=== PATIENT | male | born 1995 | race Asian ===

== ENCOUNTER 2021-11-02 14:28 | Emergency (ER) | payer OTHER, SELFPAY ==
[2021-11-02 14:55] VITALS: BP 121/70; PULSE 74; RESP 18; TEMP 36.7; O2SAT 99; BMI 28.3
[2021-11-02] MEDS: KETOROLAC 30 MG/ML VIAL 15 MG IM (15:41)
--- NOTE | 2021-11-02 15:47 | ED_ITS ---
HPI - Pediatric HENT <BHAVESH Quiroz - Last Filed: 11/02/21 15:53> General Chief complaint: Dental/Oral Stated complaint: right side jaw pain 1 day Time Seen by Provider: 11/02/21 15:23 Source: patient Mode of arrival: Ambulatory History of Present Illness HPI Narrative: This is a 26-year-old male presents emergency department complaining of right- sided upper jaw pain behind his teeth since this morning when he woke up. Patient reports never having this pain in the past but states that it is painful to chew, reports that he was chewing gum all of last week, denies any teeth grinding or clenching at night or any trauma. He denies dental pain, has not taking anything for pain, states that chewing is painful and he just wants to be able to chew food without pain again. Patient denies any recent fever, ear pain, chest pain, shortness of breath, swelling in his mouth, neck, or any enlarged lymph nodes. He denies any cold symptoms, denies any other symptoms. Related Data Allergies Allergy/AdvReac Type Severity Reaction Status Date / Time No Known Drug Allergies Allergy Verified 11/02/21 14:55 Patient History <BHAVESH Quiroz - Last Filed: 11/02/21 15:53> Social History Smoking Status: Never smoker Smoking Status: Never smoker Substance Use Type: does not use Pediatric Exam <BHAVESH Quiroz - Last Filed: 11/02/21 15:53> Narrative Physical exam: Independently reviewed vitals signs and nursing notes. General: Awake, alert, nontoxic, no cardiorespiratory distress Head/Neck: Atraumatic, neck supple, no tenderness over mastoids bilaterally, no anterior cervical lymphadenopathy, no facial tenderness to palpation Eyes: EOMI, conjunctiva normal Nose: nares patent, no rhinorrhea Mouth/Throat: moist mucus membranes, posterior pharynx without erythema or lesion, tenderness over right TMJ especially with opening closing his jaw, range of motion slightly limited due to pain, mild clicking/popping with opening closing of jaw on right. No intraoral wound, abscess, or abnormality in the upper posterior right region of his jaw. Cardio: Regular rate and rhythm, no peripheral edema Respiratory: respirations unlabored without wheezing, stridor, or rales. No retractions, hypoxia or tachypnea GI: Abdomen soft, nontender to palpation x4 quadrants, no guarding or rebound tenderness MSK: Moves all extremities, neurovascularly intact, range of motion without deficit Skin: Normal capillary refill, no rash Neuro: Normal speech and cognition, normal gait Initial Vital Signs Initial Vital Signs: Vital Signs Temperature 98.1 F 11/02/21 14:55 Pulse Rate 74 11/02/21 14:55 Respiratory Rate 18 11/02/21 14:55 Blood Pressure 121/70 11/02/21 14:55 Pulse Oximetry 99 11/02/21 14:55 Oxygen Delivery Method 11/02/21 14:55 General Limitations: no limitations <Dixon Galvez DO - Last Filed: 11/02/21 15:55> Initial Vital Signs Initial Vital Signs: Vital Signs Temperature 98.1 F 11/02/21 14:55 Pulse Rate 74 11/02/21 14:55 Respiratory Rate 18 11/02/21 14:55 Blood Pressure 121/70 11/02/21 14:55 Pulse Oximetry 99 11/02/21 14:55 Oxygen Delivery Method 11/02/21 14:55 Course <BHAVESH Quiroz - Last Filed: 11/02/21 15:53> Orders Ordered: Discontinued Medications Ketorolac Tromethamine (Ketorolac 30 Mg/Ml Vial) 15 mg IM NOW ONE Stop: 11/02/21 15:32 Last Admin: 11/02/21 15:41 Dose: 15 mg Documented By: BRYAN Vital Signs Vital signs: Vital Signs - 8 hr 11/02/21 14:55 Temperature 98.1 F Pulse Rate 74 Respiratory Rate 18 Blood Pressure 121/70 Pulse Oximetry 99 Oxygen Delivery Method Room Air <Dixon Galvez DO - Last Filed: 11/02/21 15:55> Orders Ordered: Discontinued Medications Ketorolac Tromethamine (Ketorolac 30 Mg/Ml Vial) 15 mg IM NOW ONE Stop: 11/02/21 15:32 Last Admin: 11/02/21 15:41 Dose: 15 mg Documented By: BRYAN Vital Signs Vital signs: Vital Signs - 8 hr 11/02/21 14:55 Temperature 98.1 F Pulse Rate 74 Respiratory Rate 18 Blood Pressure 121/70 Pulse Oximetry 99 Oxygen Delivery Method Room Air Medical Decision Making <Chanda Zambrano Jose Rstephanie, [facility] - Last Filed: 11/02/21 15:53> [facility] Narrative Medical decision making narrative: This is a 26-year-old male who presents emergency department complaining of right-sided TMJ pain which started this morning when he woke up. He states he has never had this pain before but endorses chewing gum frequently all of last week, endorses pain with chewing, denies any known jaw clenching or grinding of his teeth at night time. Denies any recent illness, fever, swelling of his neck, throat or mass, denies any ear pain tenderness over mastoids, or dental pain. He had mild clicking/popping over his right TMJ when opening closing his mouth, he was given 15 mg of IM Toradol in the emergency department for his pain, he had not taking any medication prior to his arrival. He is encouraged to follow up with [facility] [place] his [place]J pain, bilateral TMs were pearly long, positive light reflex and landmarks, mild erythema surrounding the TM however patient denied any pain, hearing changes, runny nose, congestion or other symptoms. Patient is appropriate and amenable to discharge home. Vital signs are stable on repeat examination is unremarkable. Patient has been informed of results. Patient has been given strict return to ER precautions for any new or worsening symptoms. Patient understands to follow up closely with outpatient providers as instructed. Patient understands plan and agrees to discharge home. All questions and concerns answered at this time. Discharge Plan Departure Patient Disposition: Home Clinical Impression: TMJ (sprain of temporomandibular joint) Qualifiers: Encounter type: initial encounter Qualified Code(s): S03.40XA - Sprain of jaw, unspecified side, initial encounter Instructions: Temporomandibular Disorder Activity Restrictions/Additional Instructions: *You have been diagnosed with pain in your TMJ joint on the right, this is likely from chewing gum or two more than usual, could be due to teeth clenching or grinding at nighttime, and your pain is from the inflammation in the joint. Please rest her trauma, try not to chew gum or excessive which to anything and allowed this to calm down. Your given Toradol in the emergency department, please do not take any ibuprofen until tomorrow within can take 600-800 mg every 8 hours with food and water for pain, this will hopefully help you. [place] to see if this is a problem with your jaw, possibly infected tooth, or something else. If you are having any symptoms of congestion or ear fullness, try Claritin daily or Flonase nasal spray. You may take Tylenol in addition to ibuprofen for your pain, stay hydrated, eat soft foods, try to avoid chewing, and hopefully this will come down in the next 24-48 hours. *What to do: *Please continue to take your regular medications as directed. [ ] New medication prescriptions sent to your pharmacy: [ ] [ ] New medication written as a paper prescription [x] No new medications given *Please follow up with your primary care provider in 2-3 days, call for an appointment. Let them know you were seen in the Emergency Department and that we asked that you be seen for follow-up. We will electronically transmit a record of today's note if your PCP is in our system *If you do not have a primary care provider please contact [phone] to establish care with one of [facility] primary care providers. *Return to Emergency Department if you should have any new, worsening or concerning symptoms, such as [fever greater than 101F, chills, worsening pain, persistent vomiting or other bothersome symptoms] Visit Report Forms: Patient Portal/API <Dixon Galvez, DO - Last Filed: 11/02/21 15:55> Cosign ED Attending Cossterlingature Attestation: Dr Galvez Co-Sign Statement: I was available for consultation during this patient's emergency department visit. This chart is signed by myself for administrative purposes only. I did not have direct contact with this patient during this visit. They were seen independently by the APC.
== END 2021-11-02 15:50 | disposition home or self-care (01) ==
PROVIDERS: Emergency Provider Nurse Practitioner Critical Care Medicine
DX: S03.40XA Sprain of jaw, unspecified side, initial encounter (principal)
CPT/HCPCS: 96372; 99283; J1885